=== PATIENT | male | born 1975 | race Two or more races ===

== ENCOUNTER → 2024-02-04 | Outpatient (BNVA) | payer MEDICAID, SELFPAY | END | disposition home or self-care (01) | PROVIDERS: PCP Physician Assistant; Referring Provider Physician Assistant; Visit Provider Urology | DX: N32.89 Other specified disorders of bladder (principal); N40.1 Benign prostatic hyperplasia with lower urinary tract symptoms; N13.8 Other obstructive and reflux uropathy; N28.89 Other specified disorders of kidney and ureter; Z98.890 Other specified postprocedural states | CPT/HCPCS: 52000; 81003; 96372; 99212; A4217; A4649; C1894; J1580; A9270; G0463 ==

== ENCOUNTER → 2024-02-07 | Outpatient (CLI) | payer MEDICAID, SELFPAY ==
--- NOTE | 2024-02-07 13:53 | XR_ITS ---
Examination: PA lateral chest 2 views TECHNIQUE: Upright PA lateral chest 2 views Exam date and time: February 07, 2024 1431 hours INDICATIONS: Diagnosis malignant neoplasm kidney FINDINGS: Normal heart size Lungs are clear. The osseous structures are intact IMPRESSION: No active disease
== END | disposition home or self-care (01) ==
PROVIDERS: PCP Physician Assistant; Referring Provider Urology; Visit Provider Urology
DX: C64.2 Malignant neoplasm of left kidney, except renal pelvis (principal)
CPT/HCPCS: 71046

== ENCOUNTER → 2024-02-07 | Outpatient (BNVA) | payer MEDICAID, SELFPAY | END | disposition home or self-care (01) | PROVIDERS: PCP Physician Assistant; Referring Provider Physician Assistant; Visit Provider Urology | DX: N28.89 Other specified disorders of kidney and ureter (principal); I10 Essential (primary) hypertension; F41.9 Anxiety disorder, unspecified | CPT/HCPCS: 99212; G0463 ==

== ENCOUNTER → 2024-04-14 | Outpatient (BNVA) | payer MEDICAID, SELFPAY | END | disposition home or self-care (01) | PROVIDERS: PCP Physician Assistant; Referring Provider Physician Assistant; Visit Provider Urology | DX: N40.0 Benign prostatic hyperplasia without lower urinary tract symptoms (principal); D17.71 Benign lipomatous neoplasm of kidney; Z87.891 Personal history of nicotine dependence | CPT/HCPCS: 81003; 99212; G0463 ==

== ENCOUNTER 2024-04-16 10:46 | Outpatient (RCR) | payer MEDICAID, SELFPAY ==
--- NOTE | 2024-04-16 11:34 | CTCFLWUP_ITS ---
[facility] [address] [place], [place] [address] FOLLOW-UP NOTE Date: 04/16/2024 MR#: [id number] Name: PATRICK STEVENSON : 1975 Dx: D41.02 Neoplasm of uncertain behavior of left kidney Patient underwent Robotic left upper lobe heminephrectomy for upper pole exophytic 7 x 8 cm renal mass March 19 at [facility] performed by Dr. Bartlett according to patient. Had biopsy of right lobe liver mass 11/05/2023 which is negative for malignancy. This reportedly revealed angiomyolipoma, a benign tumor that apparently does will not require any postop adjuvant therapy. Will check the original pathology and if confirmed, patient can be seeing us as needed and he will continue be followed by urologist Dr. Red. Electronically signed by: Justice Miranda M.D. 04/16/2024 11:32 AM
== END 2024-05-01 23:59 | disposition home or self-care (01) ==
LOC: SCTC 10:46
PROVIDERS: PCP Physician Assistant; Referring Provider Physician Assistant; Visit Provider Radiology Therapeutic Radiology
DX: D17.71 Benign lipomatous neoplasm of kidney (principal)
CPT/HCPCS: 99213; G0463

== ENCOUNTER 2024-05-14 10:46 | Outpatient (RCR) | payer MEDICAID, SELFPAY ==
--- NOTE | 2024-05-14 11:12 | CTCFLWUP_ITS ---
[facility] [address] [place], [place] [address] FOLLOW-UP NOTE Date: 05/14/2024 MR#: [id number] Name: PATRICK STEVENSON : 1975 Dx: D41.02 Neoplasm of uncertain behavior of left kidney Patient is here for follow-up and reviewed the pathology report with him.. 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 This is a benign tumor that does not need any adjuvant therapy. Patient will be followed by his primary at [facility] as well as Dr. Neda CANTU. Electronically signed by: Justice Miranda M.D. 05/14/2024 11:10 AM
== END 2024-06-01 23:59 | disposition home or self-care (01) ==
LOC: SCTC 10:46
PROVIDERS: PCP Physician Assistant; Referring Provider Physician Assistant; Visit Provider Radiology Therapeutic Radiology
DX: D17.71 Benign lipomatous neoplasm of kidney (principal)
CPT/HCPCS: 99212; G0463

== ENCOUNTER → 2024-07-14 | Outpatient (BNVA) | payer MEDICAID, SELFPAY | END | disposition home or self-care (01) | PROVIDERS: PCP Physician Assistant; Referring Provider Physician Assistant; Visit Provider Urology | DX: N40.0 Benign prostatic hyperplasia without lower urinary tract symptoms (principal); D17.71 Benign lipomatous neoplasm of kidney; Z87.891 Personal history of nicotine dependence; I10 Essential (primary) hypertension | CPT/HCPCS: 81003; 99212; G0463 ==

== ENCOUNTER → 2024-07-15 | Outpatient (CLI) | payer MEDICAID, SELFPAY ==
--- NOTE | 2024-07-15 15:00 | XR_ITS ---
Examination: CT abdomen with intravenous contrast CT pelvis with intravenous contrast 2-D coronal reconstructions 2-D sagittal reconstructions Date and time of exam:July 15, 2024 1503 hours Comparison 11/05/2023 INDICATIONS: Diagnosis neoplasm liver or gallbladder liver mass one year., History upper pole left renal mass CTDI: vol (mGy) 8.2 DLP: (mGycm) 195 Technique: Multiple axial sections of the abdomen and pelvis have been obtained. 64 slice high-resolution scanner used. 3 mm axial sections have been obtained, post intravenous injection 60 cc [id number] 2-D sagittal, coronal reconstructions obtained. Low dose protocols were performed. One or more of the following dose reduction techniques were used; automated exposure control, adjustment of the mA and/or KV according to patient size, use of iterative reconstruction technique. Findings: No focal liver lesions, however, please see the MRI report November 02, 2023 Absent gallbladder Spleen not enlarged No pancreatic mass No renal or ureteral calculi, no hydronephrosis, partial left nephrectomy Normal appendix Minimally fluid distended small bowel loops in the pelvis Aorta normal size No bowel obstruction No prostatomegaly Urinary bladder intact IMPRESSION: No focal liver lesions on this study, consider elective repeat MRI abdomen follow-up to compare with the November 02, 2023 exam
== END | disposition home or self-care (01) ==
PROVIDERS: PCP Physician Assistant; Referring Provider Internal Medicine Gastroenterology; Visit Provider Internal Medicine Gastroenterology
DX: D37.6 Neoplasm of uncertain behavior of liver, gallbladder and bile ducts (principal)
CPT/HCPCS: 74177; A4649; Q9967